=== PATIENT | male | born 1970 | race Caucasian/White ===

== ENCOUNTER 2023-04-09 15:11 | Inpatient (IN) | payer BC ==
[~2023-04-09] VITALS: Ht 185.4 cm; Wt 174.6 kg
[2023-04-09 15:11] VITALS: BP_SYST 184; PULSE 105; RESP 22; TEMP 98.9; O2SAT 94
[2023-04-09] MEDS ORDERED: KETOROLAC TROMETHAMINE 30 MG VIAL IVP ONE (15:45)
[2023-04-09] MEDS ORDERED: NACL 0.9% 1,000 ML IV ONE ×2 (15:45→17:15)
[2023-04-09] MEDS ORDERED: PIPERACILLIN/TAZO 4.5 GM in NS 100 ML IV ONE (15:45)
[2023-04-09] MEDS ORDERED: DIPHENHYDRAMINE INJ 50 MG/ML VIAL IVP ONE (15:45)
[2023-04-09 16:09] LABS: BASOPHILS % (AUTO) 0.2 % (0.0-2.0); EOSINOPHILS % (AUTO) 0.3 % (0.0-4.0); HEMATOCRIT 37.9 % (36-54); HEMOGLOBIN 12.6 g/dL (14.0-18.0); LYMPHOCYTES # (AUTO) 0.8 K/uL (1.0-5.5); LYMPHOCYTES % (AUTO) 10.6 % (20.5-51.5); MEAN CORPUSCULAR HEMOGLOBIN 30 pg (27-31); MEAN CORPUSCULAR HGB CONC 33 % (32-36); MEAN CORPUSCULAR VOLUME 91 fL (79.0-98.0); MONOCYTES # (AUTO) 0.7 K/uL (0.0-1.0); MONOCYTES % (AUTO) 9.7 % (1.7-9.3); NEUTROPHILS # (AUTO) 5.7 K/uL (1.8-7.7); NEUTROPHILS % (AUTO) 79.2 % (40.0-70.0); PLATELET COUNT (AUTO) 273 K/uL (130-430); RED BLOOD CELL COUNT(AUTO) 4.18 MIL/uL (4.2-6.2); RED CELL DISTRIBUTION WIDTH 14.5 % (9.0-15.0); WHITE BLOOD COUNT (AUTO) 7.2 K/uL (4.8-10.8)
[2023-04-09 16:14] LABS: ANION GAP 7 (5-15); CARBON DIOXIDE 30 mmol/L (23-29); CHLORIDE 92 mmol/L (98-107); CREATININE 0.73 mg/dL (0.55-1.30); GFR AFRICAN AMERICAN 145 mL/min (>90); GFR NON AFRICAN-AMERICAN 119 mL/min (>90); GLUCOSE 120 mg/dL (74-106); POTASSIUM 3.7 mmol/L (3.5-5.1); SODIUM SERUM 129 mmol/L (136-145); UREA NITROGEN, BLOOD 8 mg/dL (8-21)
[2023-04-09] MEDS ORDERED: VANCOMYCIN HCL 1,000 MG in NS 250 ML IV ONE (16:15)
[2023-04-09] MEDS ORDERED: VANCOMYCIN HCL 1000 MG/VIAL IV ONE (16:19)
[2023-04-09] MEDS ORDERED: PIPERACILLIN/TAZOBACTAM 4.5 GM/VIAL (ZOSYN) IV ONE (16:19)
[2023-04-09 16:38] LABS: PROTHROMBIN TIME 10.2 SECS (9.5-12.5)
[2023-04-09 16:47] LABS: ALANINE AMINOTRANSFERASE 57 U/L (12-78); ALBUMIN 2.6 g/dL (3.4-4.8); ASPARTATE AMINOTRANSFERASE 37 U/L (10-37); BILIRUBIN,DIRECT 0.1 mg/dL (0.0-0.3); TOTAL BILIRUBIN 0.4 mg/dL (0.0-1.0); TOTAL PROTEIN, SERUM 7.9 g/dL (6.4-8.3)
[2023-04-09] MEDS ORDERED: ACETAMINOPHEN 500 MG TABLET PO ONE (18:45)
[2023-04-09 18:58] LABS: BILIRUBIN,URINE NEGATIVE (NEGATIVE); CLARITY/URINE CLEAR (CLEAR); COLOR,URINE YELLOW (YELLOW); GLUCOSE,URINE NEGATIVE (NEGATIVE); KETONES,URINE TRACE (NEGATIVE); LEUKOCYTE ESTERASE ,URINE NEGATIVE (NEGATIVE); NITRITE, URINE NEGATIVE (NEGATIVE); PH,URINE 6.5 (5.0-8.0); PROTEIN URINE NEGATIVE (NEGATIVE); UROBILINOGEN,URINE 0.2 (0.2-1.0)
[2023-04-09 19:16] LABS: BLOOD, URINE TRACE (NEGATIVE)
[2023-04-09 19:22] LABS: BACTERIA,URINE FEW /HPF (None Seen); MUCUS,URINE None Seen /LPF (None Seen); RBC,URINE 0-3 /HPF (0-3); WBC,URINE 0-3 /HPF (0-3)
[2023-04-09 20:35] VITALS: BP_SYST 128; PULSE 81; RESP 19; TEMP 97.6
[2023-04-09] MEDS: D5/0.45 NS 1,000 ML IV SCH (21:02)
[2023-04-09 22:30] VITALS: O2SAT 94
[2023-04-09] MEDS ORDERED: PIPERACILLIN/TAZOBACTAM 3.375 GM/VIAL (ZOSYN) IV ONE (23:19)
[2023-04-09] MEDS: PIPERACILLIN/TAZO 3.375 GM in NS 50 ML IV SCH (23:39)
[2023-04-10] VITALS (7 sets, daily range): BP systolic 116–146; PULSE 80–87; RESP 17–20; TEMP 97.3–99.4; O2SAT 95–98
[2023-04-10] MEDS: VANCOMYCIN HCL 1,250 MG in NS 250 ML IV SCH ×2 (01:58→10:23)
[2023-04-10] MEDS: PIPERACILLIN/TAZO 3.375 GM in NS 50 ML IV SCH (06:08)
[2023-04-10] MEDS: FLUCONAZOLE IN NACL,ISO-OSM 200 ML IV SCH (13:16)
[2023-04-10] MEDS ORDERED: BALSAM PERU/CASTOR OIL 56.7 GM OINT...G. TP ONE (17:00)
[2023-04-10] MEDS: D5/0.45 NS 1,000 ML IV SCH ×2 (19:02→22:40)
[2023-04-10] MEDS: CEFTAROLINE FOSAMIL ACETATE 600 MG in NS 250 ML IV SCH (20:23)
[2023-04-11 00:17] VITALS: BP_SYST 106; PULSE 74; RESP 20; TEMP 98.6; O2SAT 95
[2023-04-11 04:37] LABS: BASOPHILS % (AUTO) 0.3 % (0.0-2.0); EOSINOPHILS # (AUTO) 0.2 K/uL (0.0-0.4); EOSINOPHILS % (AUTO) 3.2 % (0.0-4.0); HEMATOCRIT 35.4 % (36-54); HEMOGLOBIN 11.7 g/dL (14.0-18.0); LYMPHOCYTES # (AUTO) 1.2 K/uL (1.0-5.5); LYMPHOCYTES % (AUTO) 19.4 % (20.5-51.5); MEAN CORPUSCULAR HEMOGLOBIN 30 pg (27-31); MEAN CORPUSCULAR HGB CONC 33 % (32-36); MEAN CORPUSCULAR VOLUME 91 fL (79.0-98.0); MONOCYTES # (AUTO) 0.7 K/uL (0.0-1.0); MONOCYTES % (AUTO) 10.7 % (1.7-9.3); NEUTROPHILS % (AUTO) 66.4 % (40.0-70.0); PLATELET COUNT (AUTO) 276 K/uL (130-430); RED BLOOD CELL COUNT(AUTO) 3.89 MIL/uL (4.2-6.2); RED CELL DISTRIBUTION WIDTH 14.3 % (9.0-15.0); WHITE BLOOD COUNT (AUTO) 6.1 K/uL (4.8-10.8)
[2023-04-11 05:01] LABS: CALCIUM 8.5 mg/dL (8.4-11.0); CREATININE 0.7 mg/dL (0.55-1.30); POTASSIUM 3.5 mmol/L (3.5-5.1)
[2023-04-11 08:00] VITALS: BP_SYST 122; PULSE 74; RESP 19; TEMP 97.7; O2SAT 99
[2023-04-11 08:45] VITALS: O2SAT 96
[2023-04-11] MEDS: CEFTAROLINE FOSAMIL ACETATE 600 MG in NS 250 ML IV SCH ×2 (11:13→21:59)
[2023-04-11 12:01] VITALS: BP_SYST 113; PULSE 76; RESP 18; TEMP 98.2; O2SAT 97
[2023-04-11] MEDS: FLUCONAZOLE IN NACL,ISO-OSM 200 ML IV SCH (12:46)
[2023-04-11 16:11] VITALS: BP_SYST 129; PULSE 77; RESP 16; TEMP 98.4; O2SAT 94
[2023-04-11 19:40] VITALS: O2SAT 97
[2023-04-12 00:11] VITALS: BP_SYST 128; PULSE 68; RESP 18; TEMP 97.9; O2SAT 100
[2023-04-12 06:09] LABS: BASOPHILS % (AUTO) 0.3 % (0.0-2.0); EOSINOPHILS # (AUTO) 0.3 K/uL (0.0-0.4); EOSINOPHILS % (AUTO) 5.5 % (0.0-4.0); HEMATOCRIT 36.1 % (36-54); HEMOGLOBIN 12.1 g/dL (14.0-18.0); LYMPHOCYTES # (AUTO) 1.2 K/uL (1.0-5.5); LYMPHOCYTES % (AUTO) 20.1 % (20.5-51.5); MEAN CORPUSCULAR HEMOGLOBIN 30 pg (27-31); MEAN CORPUSCULAR HGB CONC 33 % (32-36); MEAN CORPUSCULAR VOLUME 91 fL (79.0-98.0); MONOCYTES # (AUTO) 0.4 K/uL (0.0-1.0); MONOCYTES % (AUTO) 6.5 % (1.7-9.3); NEUTROPHILS # (AUTO) 4.2 K/uL (1.8-7.7); NEUTROPHILS % (AUTO) 67.6 % (40.0-70.0); PLATELET COUNT (AUTO) 370 K/uL (130-430); RED BLOOD CELL COUNT(AUTO) 3.97 MIL/uL (4.2-6.2); RED CELL DISTRIBUTION WIDTH 14.7 % (9.0-15.0); WHITE BLOOD COUNT (AUTO) 6.2 K/uL (4.8-10.8)
[2023-04-12 06:47] LABS: CALCIUM 8.7 mg/dL (8.4-11.0); CREATININE 0.58 mg/dL (0.55-1.30); POTASSIUM 3.8 mmol/L (3.5-5.1); TOTAL BILIRUBIN 0.2 mg/dL (0.0-1.0); TOTAL PROTEIN, SERUM 7.2 g/dL (6.4-8.3)
[2023-04-12 06:50] LABS: HEMOGLOBIN A1C 5.54 % (<5.7)
[2023-04-12 08:00] VITALS: BP_SYST 141; PULSE 76; RESP 18; TEMP 98.3; O2SAT 96
[2023-04-12] MEDS: CEFTAROLINE FOSAMIL ACETATE 600 MG in NS 250 ML IV SCH ×2 (09:33→20:37)
[2023-04-12] MEDS ORDERED: ENOXAPARIN SODIUM 40 MG/0.4 ML SYRINGE SUBCUT ONE (10:00)
[2023-04-12 10:11] VITALS: O2SAT 96
[2023-04-12 11:22] VITALS: BP_SYST 127; PULSE 76; RESP 16; TEMP 99.1; O2SAT 94
[2023-04-12] MEDS: FLUCONAZOLE IN NACL,ISO-OSM 200 ML IV SCH (12:02)
[2023-04-12 15:01] VITALS: BP_SYST 138; PULSE 77; RESP 16; TEMP 97.8; O2SAT 97
[2023-04-12 19:35] VITALS: BP_SYST 128; PULSE 84; RESP 18; TEMP 96.6; O2SAT 94
[2023-04-13] VITALS (7 sets, daily range): BP systolic 121–139; PULSE 73–79; RESP 16–18; TEMP 97.5–98.4; O2SAT 94–96
[2023-04-13] MEDS: ENOXAPARIN SODIUM 40 MG/0.4 ML SYRINGE SUBCUT SCH (08:28)
[2023-04-13] MEDS: CEFTAROLINE FOSAMIL ACETATE 600 MG in NS 250 ML IV SCH ×2 (09:15→21:23)
[2023-04-13 11:27] LABS: BASOPHILS % (AUTO) 0.3 % (0.0-2.0); EOSINOPHILS # (AUTO) 0.3 K/uL (0.0-0.4); EOSINOPHILS % (AUTO) 4.4 % (0.0-4.0); HEMATOCRIT 37.9 % (36-54); HEMOGLOBIN 12.8 g/dL (14.0-18.0); LYMPHOCYTES # (AUTO) 1.3 K/uL (1.0-5.5); LYMPHOCYTES % (AUTO) 20.5 % (20.5-51.5); MEAN CORPUSCULAR HEMOGLOBIN 30 pg (27-31); MEAN CORPUSCULAR HGB CONC 34 % (32-36); MEAN CORPUSCULAR VOLUME 90 fL (79.0-98.0); MONOCYTES # (AUTO) 0.4 K/uL (0.0-1.0); NEUTROPHILS # (AUTO) 4.4 K/uL (1.8-7.7); NEUTROPHILS % (AUTO) 68.8 % (40.0-70.0); PLATELET COUNT (AUTO) 421 K/uL (130-430); RED BLOOD CELL COUNT(AUTO) 4.21 MIL/uL (4.2-6.2); RED CELL DISTRIBUTION WIDTH 14.4 % (9.0-15.0); WHITE BLOOD COUNT (AUTO) 6.3 K/uL (4.8-10.8)
[2023-04-13] MEDS: FLUCONAZOLE IN NACL,ISO-OSM 200 ML IV SCH (11:29)
[2023-04-13 11:33] LABS: CALCIUM 8.4 mg/dL (8.4-11.0); CREATININE 0.63 mg/dL (0.55-1.30); TOTAL BILIRUBIN 0.2 mg/dL (0.0-1.0); TOTAL PROTEIN, SERUM 7.4 g/dL (6.4-8.3)
[2023-04-14] VITALS: BP_SYST 146; PULSE 84; RESP 18; TEMP 97.7; O2SAT 97
[2023-04-14 06:08] LABS: BASOPHILS % (AUTO) 0.5 % (0.0-2.0); EOSINOPHILS # (AUTO) 0.4 K/uL (0.0-0.4); HEMOGLOBIN 12.3 g/dL (14.0-18.0); LYMPHOCYTES # (AUTO) 1.4 K/uL (1.0-5.5); LYMPHOCYTES % (AUTO) 22.7 % (20.5-51.5); MEAN CORPUSCULAR HEMOGLOBIN 30 pg (27-31); MEAN CORPUSCULAR HGB CONC 33 % (32-36); MEAN CORPUSCULAR VOLUME 91 fL (79.0-98.0); MONOCYTES # (AUTO) 0.3 K/uL (0.0-1.0); MONOCYTES % (AUTO) 5.3 % (1.7-9.3); NEUTROPHILS # (AUTO) 3.9 K/uL (1.8-7.7); NEUTROPHILS % (AUTO) 64.5 % (40.0-70.0); PLATELET COUNT (AUTO) 419 K/uL (130-430); RED BLOOD CELL COUNT(AUTO) 4.08 MIL/uL (4.2-6.2)
[2023-04-14 06:13] LABS: ALBUMIN 1.9 g/dL (3.4-4.8); CALCIUM 8.8 mg/dL (8.4-11.0); CREATININE 0.67 mg/dL (0.55-1.30); POTASSIUM 4.1 mmol/L (3.5-5.1); TOTAL BILIRUBIN 0.2 mg/dL (0.0-1.0); TOTAL PROTEIN, SERUM 7.2 g/dL (6.4-8.3)
[2023-04-14 08:00] VITALS: BP_SYST 154; PULSE 74; RESP 16; TEMP 98.4; O2SAT 93
[2023-04-14] MEDS: ENOXAPARIN SODIUM 40 MG/0.4 ML SYRINGE SUBCUT SCH (09:21)
[2023-04-14] MEDS: CEFTAROLINE FOSAMIL ACETATE 600 MG in NS 250 ML IV SCH (09:58)
[2023-04-14] MEDS ORDERED: DOXY100T2 PO (11:51)
[2023-04-14] MEDS ORDERED: CIPR500T5 PO (11:51)
[2023-04-14 12:00] VITALS: BP_SYST 160; PULSE 89; RESP 18; TEMP 97.9; O2SAT 93
[2023-04-14] MEDS: FLUCONAZOLE IN NACL,ISO-OSM 200 ML IV SCH (12:34)
[2023-04-14 12:35] VITALS: BP_SYST 154; BP_SYST 93; PULSE 89; RESP 18; TEMP 97.9; O2SAT 93
[2023-04-14] MEDS ORDERED: DOXYCYCLINE HYCLATE 100 MG CAPSULE PO SCH (21:00)
== END 2023-04-14 15:15 | disposition home or self-care (01) | DRG 602 ==
LOC: SED 15:11 → SMU 19:08
PROVIDERS: ADMIT Specialist; ATTEND Specialist
DX: L03.116 Cellulitis of left lower limb (principal); E43 Unspecified severe protein-calorie malnutrition; E87.1 Hypo-osmolality and hyponatremia; Z68.43 Body mass index [BMI] 50.0-59.9, adult; I10 Essential (primary) hypertension; E66.01 Morbid (severe) obesity due to excess calories; E88.09 Other disorders of plasma-protein metabolism, not elsewhere classified; I89.0 Lymphedema, not elsewhere classified; I87.2 Venous insufficiency (chronic) (peripheral); B95.62 Methicillin resistant Staphylococcus aureus infection as the cause of diseases classified elsewhere; Z88.0 Allergy status to penicillin; Z79.899 Other long term (current) drug therapy
CPT/HCPCS: 36415; 71045; 80048; 80053; 80076; 81000; 81001; 81015; 83037; 83605; 83880; 84484; 85025; 85610-TC; 85730-TC; 87040; 87070-TC; 87081; 87086; 87186-TC; 93005; 93971; 96361; 96365; 96367; 96375; 97110-GP; 97116-GP; 97530-GP; 99285; J0712; J1200; J1450; J1650; J1885; J2543; J3370; J7050